=== PATIENT | male | born 1940 | race Caucasian/White ===

== ENCOUNTER 2019-10-07 12:23 | Inpatient (IN) | payer OTHER ==
[~2019-10-07] VITALS: Ht 185.4 cm; Wt 83.2 kg
[2019-10-07 13:20] VITALS: BP_SYST 126
[2019-10-07 14:10] LABS: BASOPHILS % (AUTO) 0.4 % (0.0-2.0); EOSINOPHILS # (AUTO) 0.2 K/uL (0.0-0.4); EOSINOPHILS % (AUTO) 4.7 % (0.0-4.0); HEMATOCRIT 31.1 % (36-54); HEMOGLOBIN 10.4 g/dL (14.0-18.0); LYMPHOCYTES # (AUTO) 0.7 K/uL (1.0-5.5); MEAN CORPUSCULAR HEMOGLOBIN 33 pg (27-31); MEAN CORPUSCULAR HGB CONC 33 % (32-36); MEAN CORPUSCULAR VOLUME 99 fL (79.0-98.0); MONOCYTES # (AUTO) 0.3 K/uL (0.0-1.0); MONOCYTES % (AUTO) 6.6 % (1.7-9.3); NEUTROPHILS # (AUTO) 3.7 K/uL (1.8-7.7); NEUTROPHILS % (AUTO) 73.3 % (40.0-70.0); PLATELET COUNT (AUTO) 121 K/uL (130-430); RED BLOOD CELL COUNT(AUTO) 3.13 MIL/uL (4.2-6.2); RED CELL DISTRIBUTION WIDTH 17.8 % (9.0-15.0)
[2019-10-07 14:16] LABS: ANION GAP 7 (5-15); CALCIUM 8.2 mg/dL (8.4-11.0); CHLORIDE 100 mmol/L (98-107); GLUCOSE 198 mg/dL (70-99); SODIUM SERUM 138 mmol/L (136-145); UREA NITROGEN, BLOOD 64 mg/dL (8-21)
[2019-10-07 14:21] LABS: ALANINE AMINOTRANSFERASE 38 U/L (12-78); ALBUMIN 3.1 g/dL (3.4-4.8); ASPARTATE AMINOTRANSFERASE 28 U/L (10-37)
[2019-10-07 14:38] LABS: POTASSIUM 2.9 mmol/L (3.5-5.1)
[2019-10-07 15:11] LABS: PROTHROMBIN TIME 43.4 SECS (9.5-12.5)
[2019-10-07 15:12] LABS: INR 4.4 (0.80-1.20)
[2019-10-07] MEDS ORDERED: LIP10 PO (15:17)
[2019-10-07] MEDS ORDERED: INSU100V9 SQ (15:17)
[2019-10-07] MEDS ORDERED: INSU100V42 ×2 (15:17)
[2019-10-07] MEDS ORDERED: ALLO300T2 PO (15:17)
[2019-10-07] MEDS ORDERED: POLY15DR31 EACH EYE (15:17)
[2019-10-07] MEDS ORDERED: WARF3TAB PO (15:17)
[2019-10-07] MEDS ORDERED: NOR10 PO (15:17)
[2019-10-07] MEDS ORDERED: ATEN-41 PO (15:17)
[2019-10-07] MEDS ORDERED: DOXA1TAB2 PO (15:17)
[2019-10-07] MEDS ORDERED: FURO-150 PO (15:17)
[2019-10-07] MEDS ORDERED: MAGNESIUM SULFATE 1 GM in NS 100 ML IV ONE (15:30)
[2019-10-07] MEDS ORDERED: POTASSIUM CHLORIDE 20 MEQ TAB.PRT.SR PO ONE (15:30)
[2019-10-07] MEDS ORDERED: MAGNESIUM SULFATE 1 GM/2 ML VIAL ONE (15:45)
[2019-10-07 17:50] VITALS: BP_SYST 136
[2019-10-07] MEDS ORDERED: PEG 400/HYPROMELLOSE/GLYCERIN 15 ML DROPS EACH EYE PRN (18:15)
[2019-10-07] MEDS ORDERED: ACETAMINOPHEN 325 MG TABLET PO PRN (18:30)
[2019-10-07] MEDS ORDERED: INSULIN REGULAR, HUMAN 100 UNITS/ML, 10 ML VIAL (humuLIN R) SUBCUT PRN (18:30)
[2019-10-07] MEDS ORDERED: DEXTROSE 50% JECT 50 ML DISP.SYRIN IVP PRN (18:30)
[2019-10-07 19:10] VITALS: BP_SYST 130
[2019-10-07] MEDS ORDERED: PIPERACILLIN/TAZOBACTAM 2.25 GM VIAL IV ONE (20:44)
[2019-10-07] MEDS: FUROSEMIDE 20 MG TABLET PO SCH (21:14)
[2019-10-07] MEDS: PIPERACILLIN/TAZO 2.25G/DEX-IS 50 ML IV SCH (21:18)
[2019-10-08 00:10] VITALS: BP_SYST 134
[2019-10-08] MEDS: PIPERACILLIN/TAZO 2.25G/DEX-IS 50 ML IV SCH ×3 (00:30→11:26)
[2019-10-08 04:08] LABS: BILIRUBIN,URINE NEGATIVE (NEGATIVE); BLOOD, URINE NEGATIVE (NEGATIVE); CLARITY/URINE CLEAR (CLEAR); COLOR,URINE YELLOW (YELLOW); GLUCOSE,URINE NEGATIVE (NEGATIVE); KETONES,URINE NEGATIVE (NEGATIVE); LEUKOCYTE ESTERASE ,URINE NEGATIVE (NEGATIVE); NITRITE, URINE NEGATIVE (NEGATIVE); PH,URINE 6.5 (5.0-8.0); PROTEIN URINE TRACE (NEGATIVE)
[2019-10-08 04:12] LABS: BACTERIA,URINE FEW /HPF (None Seen); RBC,URINE 0-3 /HPF (0-3)
[2019-10-08 07:52] LABS: BASOPHILS % (AUTO) 1.1 % (0.0-2.0); EOSINOPHILS # (AUTO) 0.3 K/uL (0.0-0.4); EOSINOPHILS % (AUTO) 6.6 % (0.0-4.0); HEMATOCRIT 29.3 % (36-54); HEMOGLOBIN 9.8 g/dL (14.0-18.0); LYMPHOCYTES # (AUTO) 0.8 K/uL (1.0-5.5); LYMPHOCYTES % (AUTO) 18.6 % (20.5-51.5); MEAN CORPUSCULAR HEMOGLOBIN 34 pg (27-31); MEAN CORPUSCULAR HGB CONC 34 % (32-36); MEAN CORPUSCULAR VOLUME 100 fL (79.0-98.0); MONOCYTES # (AUTO) 0.3 K/uL (0.0-1.0); MONOCYTES % (AUTO) 7.6 % (1.7-9.3); NEUTROPHILS % (AUTO) 66.1 % (40.0-70.0); PLATELET COUNT (AUTO) 127 K/uL (130-430); RED BLOOD CELL COUNT(AUTO) 2.93 MIL/uL (4.2-6.2); RED CELL DISTRIBUTION WIDTH 17.6 % (9.0-15.0); WHITE BLOOD COUNT (AUTO) 4.5 K/uL (4.8-10.8)
[2019-10-08 08:24] LABS: ALANINE AMINOTRANSFERASE 32 U/L (12-78); ALBUMIN 2.8 g/dL (3.4-4.8); ANION GAP 8 (5-15); ASPARTATE AMINOTRANSFERASE 29 U/L (10-37); CHLORIDE 102 mmol/L (98-107); CREATININE 2.56 mg/dL (0.55-1.30); FREE T4 (FREE THYROXINE) 1.1 ng/dl (0.8-1.5); GLUCOSE 103 mg/dL (70-99); PHOSPHORUS 3.6 mg/dL (2.7-4.5); POTASSIUM 3.5 mmol/L (3.5-5.1); SODIUM SERUM 139 mmol/L (136-145); TOTAL BILIRUBIN 0.9 mg/dL (0.0-1.0); UREA NITROGEN, BLOOD 64 mg/dL (8-21)
[2019-10-08 08:33] LABS: PROTHROMBIN TIME 45.7 SECS (9.5-12.5)
[2019-10-08 08:34] LABS: INR 4.7 (0.80-1.20)
[2019-10-08] MEDS: ALLOPURINOL 100 MG TABLET (ZYLOPRIM) PO SCH (08:42)
[2019-10-08] MEDS: FUROSEMIDE 20 MG TABLET PO SCH ×2 (08:42→21:00)
[2019-10-08] MEDS: ATORVASTATIN 10 MG TABLET PO SCH (08:42)
[2019-10-08] MEDS: ATENOLOL 25 MG TABLET(TENORMIN) PO SCH (08:42)
[2019-10-08] MEDS: amLODIPine BESYLATE 10 MG TABLET PO SCH (08:42)
[2019-10-08] MEDS: DOXAZOSIN MESYLATE 2 MG TABLET PO SCH (08:43)
[2019-10-08 08:52] VITALS: BP_SYST 133
[2019-10-08 11:16] VITALS: BP_SYST 109
[2019-10-08] MEDS ORDERED: PHYTONADIONE Non-Formulary 5 MG TABLET PO ONE (13:45)
[2019-10-08] MEDS ORDERED: VANCOMYCIN HCL 1,000 MG in NS 250 ML IV ONE (14:00)
[2019-10-08 15:27] VITALS: BP_SYST 124
[2019-10-08 20:00] VITALS: BP_SYST 135
[2019-10-08] MEDS: AMPICILLIN SODIUM/SULBACTAM NA 1.5 GM in NS 50 ML IV SCH (20:59)
[2019-10-09] VITALS: BP_SYST 122
[2019-10-09 07:18] LABS: EOSINOPHILS # (AUTO) 0.3 K/uL (0.0-0.4); EOSINOPHILS % (AUTO) 5.9 % (0.0-4.0); HEMATOCRIT 29.5 % (36-54); HEMOGLOBIN 9.9 g/dL (14.0-18.0); LYMPHOCYTES # (AUTO) 0.6 K/uL (1.0-5.5); LYMPHOCYTES % (AUTO) 13.1 % (20.5-51.5); MEAN CORPUSCULAR HEMOGLOBIN 33 pg (27-31); MEAN CORPUSCULAR HGB CONC 34 % (32-36); MEAN CORPUSCULAR VOLUME 99 fL (79.0-98.0); MONOCYTES # (AUTO) 0.3 K/uL (0.0-1.0); MONOCYTES % (AUTO) 7.3 % (1.7-9.3); NEUTROPHILS # (AUTO) 3.3 K/uL (1.8-7.7); NEUTROPHILS % (AUTO) 72.7 % (40.0-70.0); PLATELET COUNT (AUTO) 131 K/uL (130-430); RED BLOOD CELL COUNT(AUTO) 2.97 MIL/uL (4.2-6.2); RED CELL DISTRIBUTION WIDTH 17.9 % (9.0-15.0); WHITE BLOOD COUNT (AUTO) 4.6 K/uL (4.8-10.8)
[2019-10-09 07:37] LABS: INR 2.4 (0.80-1.20); PROTHROMBIN TIME 24.1 SECS (9.5-12.5)
[2019-10-09 07:44] LABS: ANION GAP 8 (5-15); CALCIUM 7.7 mg/dL (8.4-11.0); CHLORIDE 101 mmol/L (98-107); CREATININE 2.83 mg/dL (0.55-1.30); GLUCOSE 137 mg/dL (70-99); POTASSIUM 3.8 mmol/L (3.5-5.1); SODIUM SERUM 137 mmol/L (136-145); UREA NITROGEN, BLOOD 70 mg/dL (8-21)
[2019-10-09 08:00] VITALS: BP_SYST 122
[2019-10-09] MEDS: ATENOLOL 25 MG TABLET(TENORMIN) PO SCH (12:00)
[2019-10-09] MEDS: ATORVASTATIN 10 MG TABLET PO SCH (12:00)
[2019-10-09] MEDS: AMPICILLIN SODIUM/SULBACTAM NA 1.5 GM in NS 50 ML IV SCH (12:00)
[2019-10-09] MEDS: DOXAZOSIN MESYLATE 2 MG TABLET PO SCH (12:01)
[2019-10-09] MEDS: FUROSEMIDE 20 MG TABLET PO SCH (12:01)
[2019-10-09] MEDS: ALLOPURINOL 100 MG TABLET (ZYLOPRIM) PO SCH (12:01)
[2019-10-09] MEDS: amLODIPine BESYLATE 10 MG TABLET PO SCH (12:01)
[2019-10-09 12:15] VITALS: BP_SYST 137
[2019-10-09] MEDS ORDERED: AMOX250S64 PO (13:39)
[2019-10-09 16:00] VITALS: BP_SYST 122
[2019-10-09] MEDS ORDERED: VANCOMYCIN HCL 1 GM/NS PREMIX 250 ML IV ONE (16:00)
[2019-10-09 16:12] VITALS: BP_SYST 135
== END 2019-10-09 16:32 | disposition home or self-care (01) | DRG 602 ==
LOC: SED 12:23 → STU 16:43 → SMU 10-08 19:37
PROVIDERS: ADMIT Internal Medicine; ATTEND Internal Medicine
PROC: 5A1D70Z Performance of Urinary Filtration, Intermittent, Less than 6 Hours Per Day (ICD-10-PCS; principal; 2019-10-09)
DX: L03.116 Cellulitis of left lower limb (principal); N18.6 End stage renal disease; I13.2 Hypertensive heart and chronic kidney disease with heart failure and with stage 5 chronic kidney disease, or end stage renal disease; I50.32 Chronic diastolic (congestive) heart failure; T45.515A Adverse effect of anticoagulants, initial encounter; D63.8 Anemia in other chronic diseases classified elsewhere; I48.0 Paroxysmal atrial fibrillation; E11.22 Type 2 diabetes mellitus with diabetic chronic kidney disease; E78.5 Hyperlipidemia, unspecified; I25.10 Atherosclerotic heart disease of native coronary artery without angina pectoris; E87.6 Hypokalemia; C4A.9 Merkel cell carcinoma, unspecified; K74.60 Unspecified cirrhosis of liver; Z85.821 Personal history of Merkel cell carcinoma; Z99.2 Dependence on renal dialysis; Y92.89 Other specified places as the place of occurrence of the external cause; Z92.21 Personal history of antineoplastic chemotherapy; Z79.899 Other long term (current) drug therapy; Z79.4 Long term (current) use of insulin; Z88.8 Allergy status to other drugs, medicaments and biological substances; Z88.2 Allergy status to sulfonamides
CPT/HCPCS: 36415; 80048; 80053; 81000-TC; 82962; 84100-TC; 84439; 85025; 85610-TC; 85730-TC; 87081; 90935; 93005; 93971; 96365; 99285; G0378; J0295; J1815; J2543; J3370; J3475; J7030; J7050; J7060